=== PATIENT | female | born 1950 | race Caucasian/White ===

== ENCOUNTER 2018-09-09 09:38 | Inpatient (IN) | payer BC ==
[~2018-09-09] VITALS: Ht 152.4 cm; Wt 77.1 kg
[2018-09-09] MEDS ORDERED: MORPHINE SULFATE 4 MG/ML CPJ (NOT FOR IM USE) IV STA (10:02)
[2018-09-09 10:25] LABS: BASOPHILS % 0.3 % (0.0-2.0); EOSINOPHILS % 1.7 % (0.0-5.0); HEMATOCRIT. 39.2 % (36.0-48.0); HEMOGLOBIN. 12.8 g/dL (12.0-16.0); MEAN CORPUSCULAR HEMOGLOBIN 26.8 pg (28.0-32.0); MEAN PLATELET VOLUME 7.4 fl (7.4-10.4); MONOCYTES % 4.7 % (2.0-8.0); NEUTROPHILS % 75.3 % (40.0-76.0); PLATELET 404 x1000/uL (130-400); RED BLOOD CELL COUNT 4.79 mill/uL (4.2-5.4)
[2018-09-09 10:29] LABS: CHLORIDE 104 mEq/L (98-107)
[2018-09-09] MEDS ORDERED: ALEN70SO3 PO (10:31)
[2018-09-09] MEDS ORDERED: TRAM50TA3 PO (10:31)
[2018-09-09] MEDS ORDERED: PRAV40TA58 MT (10:32)
[2018-09-09] MEDS ORDERED: AMLO5TAB88 MT (10:32)
[2018-09-09] MEDS ORDERED: METF-815 MT (10:33)
[2018-09-09] MEDS ORDERED: PANT40TA4 MT (10:33)
[2018-09-09] MEDS ORDERED: MELO-106 MT (10:34)
[2018-09-09] MEDS ORDERED: KETOROLAC 30MG/ML VIAL IV ONE (11:00)
[2018-09-09] MEDS ORDERED: IOHEXOL-350 100 ML BOTTLE ONE (12:54)
[2018-09-09] MEDS ORDERED: LORAZEPAM 0.5MG TABLET PO PRN (13:15)
[2018-09-09] MEDS ORDERED: CLONIDINE 0.1MG TABLET PO PRN (13:15)
[2018-09-09] MEDS ORDERED: DIPHENHYDRAMINE 50MG/ML VIAL IV PRN (13:15)
[2018-09-09] MEDS ORDERED: ACETAMINOPHEN 650MG SUPP PR PRN (13:15)
[2018-09-09] MEDS ORDERED: DOCUSATE SODIUM 100MG CAPSULE PO PRN (13:15)
[2018-09-09] MEDS ORDERED: GUAIFENESIN 200MG/10ML SUGAR FREE UDC PO PRN (13:15)
[2018-09-09] MEDS ORDERED: IPRATROPIUM/ALBUTEROL 0.5-3(2.5)MG/3ML NEB INH PRN (13:15)
[2018-09-09] MEDS ORDERED: ONDANSETRON HCL 4MG/2ML INJ IV PRN (13:15)
[2018-09-09] MEDS ORDERED: ACETAMINOPHEN 325MG TABLET PO PRN (13:15)
[2018-09-09] MEDS ORDERED: MAGNESIUM/ALUMINUM HYDROXIDE/SIMETHICONE 30ML UDC PO PRN (13:15)
[2018-09-09] MEDS ORDERED: NA PHOS,M-B/NA PHOS,DI-BA ENEMA 118ML PR PRN (13:15)
[2018-09-09] MEDS ORDERED: LEVOFLOXACIN 500MG PREMIX 100 ML IV ONE (13:35)
[2018-09-09] MEDS: ENOXAPARIN 40MG/0.4ML SYR SUBCUT SCH (13:51)
[2018-09-09 14:38] LABS: CREATINE KINASE 92 IU/L (26-192)
[2018-09-09 14:39] LABS: CREATINE KINASE MB FRACTION < 1.0 ng/mL (0.5-3.6)
[2018-09-09 16:30] VITALS: BP 134/77
[2018-09-09 16:45] VITALS: BP 134/77
[2018-09-09] MEDS: HYDROCODONE/ACETAMINOPHEN 5/325MG TABLET PO PRN (17:13)
[2018-09-09] MEDS ORDERED: DEXTROSE 50% WATER 50ML SYRINGE IV PRN (18:00)
[2018-09-09 20:00] VITALS: BP 126/74
[2018-09-09] MEDS: INSULIN LISPRO 100 UNITS/ML SUBCUT SCH (21:00)
[2018-09-09] MEDS: BLOOD SUGAR DIAGNOSTIC STRIP TEST SCH (21:00)
[2018-09-09] MEDS ORDERED: PNEUMOCOCCAL 23-VAL P-SAC VAC 0.5 ML IM ONE (22:00)
[2018-09-09] MEDS ORDERED: MORPHINE SULFATE 4 MG/ML CPJ (NOT FOR IM USE) IV PRN (22:15)
[2018-09-09 23:34] LABS: CREATINE KINASE 73 IU/L (26-192)
[2018-09-09 23:35] LABS: CREATINE KINASE MB FRACTION < 1.0 ng/mL (0.5-3.6)
[2018-09-10] VITALS: BP 116/71
[2018-09-10 02:04] LABS: CLARITY URINE CLEAR (CLEAR); COLOR URINE YELLOW (YELLOW); KETONES URINE TRACE (NEGATIVE); LEUKOCYTE ESTERASE URINE NEGATIVE (NEGATIVE); NITRITE URINE NEGATIVE (NEGATIVE); OCCULT BLOOD URINE NEGATIVE (NEGATIVE); PH URINE 5.5 (4.5-8.0); PROTEIN URINE NEGATIVE (NEGATIVE); SPECIFIC GRAVITY URINE 1.045 (1.005-1.030); UROBILINOGEN URINE 0.2 E.U./dL (0.2-1.0)
[2018-09-10 02:18] LABS: *BARBITURATES SCREEN URINE NEGATIVE (NEGATIVE)
[2018-09-10 02:19] LABS: *AMPHETAMINES SCREEN URINE NEGATIVE (NEGATIVE); *BENZODIAZEPINES SCREEN URINE NEGATIVE (NEGATIVE); *COCAINE SCREEN URINE NEGATIVE (NEGATIVE)
[2018-09-10 02:20] LABS: CANNABINOID URINE SCREEN NEGATIVE (NEGATIVE); METHADONE URINE SCREEN NEGATIVE (NEGATIVE); OPIATES URINE SCREEN PRESUMTIVE POSITIVE (NEGATIVE); PHENCYCLIDINE URINE SCREEN NEGATIVE (NEGATIVE)
[2018-09-10 04:00] VITALS: BP 115/69
[2018-09-10] MEDS: HYDROCODONE/ACETAMINOPHEN 5/325MG TABLET PO PRN ×2 (05:12→16:24)
[2018-09-10] MEDS: BLOOD SUGAR DIAGNOSTIC STRIP TEST SCH ×3 (05:29→17:40)
[2018-09-10 06:01] LABS: BASOPHILS % 0.2 % (0.0-2.0); EOSINOPHILS % 2.1 % (0.0-5.0); HEMATOCRIT. 34.9 % (36.0-48.0); HEMOGLOBIN. 11.5 g/dL (12.0-16.0); LYMPHOCYTES % 23.8 % (20.0-50.0); MEAN CORPUSCULAR VOLUME 82.1 fL (81.0-99.0); MEAN PLATELET VOLUME 7.6 fl (7.4-10.4); MONOCYTES % 5.5 % (2.0-8.0); NEUTROPHILS % 68.4 % (40.0-76.0); PLATELET 372 x1000/uL (130-400); RED BLOOD CELL COUNT 4.25 mill/uL (4.2-5.4); RED CELL DISTRIBUTION WIDTH 15.4 % (11.6-14.6)
[2018-09-10 07:00] LABS: CHLORIDE 107 mEq/L (98-107)
[2018-09-10 07:14] LABS: LDL CHOLESTEROL 66 mg/dL (5-100)
[2018-09-10 07:15] LABS: HDL CHOLESTEROL 54 mg/dL (40-59); T4 FREE 0.97 ng/dL (0.76-1.46)
[2018-09-10 08:00] VITALS: BP 119/76
[2018-09-10] MEDS: INSULIN LISPRO 100 UNITS/ML SUBCUT SCH ×3 (08:10→18:10)
[2018-09-10] MEDS ORDERED: ASPIRIN 81MG EC TABLET PO SCH (09:00)
[2018-09-10] MEDS: ENOXAPARIN 40MG/0.4ML SYR SUBCUT SCH (10:22)
[2018-09-10 12:00] VITALS: BP 128/82
[2018-09-10] MEDS ORDERED: LEVOFLOXACIN 500MG PREMIX 100 ML IV SCH (14:00)
[2018-09-10 16:00] VITALS: BP 128/74
[2018-09-10 19:08] VITALS: BP 128/74
== END 2018-09-10 19:30 | disposition home or self-care (01) | DRG 313 ==
LOC: ER 09:38 → 7WST 12:35 → EDBEDREQ 12:37 → ENRESERV 14:43 → CANRESERV 14:43 → ENRESERV 15:38
PROVIDERS: ADMIT Internal Medicine; ATTEND Internal Medicine
DX: R07.89 Other chest pain (principal); G95.9 Disease of spinal cord, unspecified; D72.829 Elevated white blood cell count, unspecified; E66.9 Obesity, unspecified; E78.5 Hyperlipidemia, unspecified; I10 Essential (primary) hypertension; J45.909 Unspecified asthma, uncomplicated; K76.0 Fatty (change of) liver, not elsewhere classified; E11.649 Type 2 diabetes mellitus with hypoglycemia without coma; M48.02 Spinal stenosis, cervical region; M19.90 Unspecified osteoarthritis, unspecified site; Z79.84 Long term (current) use of oral hypoglycemic drugs; Z79.899 Other long term (current) drug therapy; Z68.33 Body mass index [BMI] 33.0-33.9, adult
CPT/HCPCS: 36415; 71045; 71275; 72141; 80061; 80305; 82550; 82553; 82962; 83036; 83880; 84439; 84443; 84484; 90732; 93005; 93306; 93970; 96374; 97162; 99285; J1650; J1885; J1956; J2270; Q9967